=== PATIENT | female | born 1985 | race Caucasian/White ===

== ENCOUNTER 2024-12-12 13:16 | Outpatient (AMB) | payer MEDICAID, SELFPAY ==
[2024-12-12 13:36] VITALS: BP 106/70; PULSE 83; RESP 17; TEMP 36.5; O2SAT 95; BMI 32.1
--- NOTE | 2024-12-12 13:36 | OBCLNT_ITS ---
Vital Signs 12/12/24 13:36 Height 1.6 m Height Method Measured Weight 82.157 kg Weight Measurement Method Standing Scale BMI 32.1 BP 106/70 Blood Pressure Source Automatic Cuff Blood Pressure Location Right Upper Arm Position Sitting Respiration 17 Pulse 83 Pulse Source Monitor Temp 97.7 F Temp Source Temporal Artery Scan Pulse Oximetry (%) 95 Oxygen Delivery Method Room Air Allergies/Home Meds Allergies & Medications Allergies No Known Allergies Allergy (Verified 12/12/24 13:37) Medication Reconciliation metformin 500 mg tablet 500 mg PO QDAY 12/12/24 [History Confirmed 12/12/24] vits no.126-ferrous fum 28 mg iron-folic acid 800 mcg tablet (Classic ) tab PO 12/12/24 [History Confirmed 12/12/24] Intake Visit Data Collection New Patient or Established: New Patient (never been to [facility]) Reason for Visit:: OBI Consent obtained for Telemed Visit: No Seen by Clinical Staff ONLY (RN/MA): No Real Estate 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 Manager Required: No Do You Feel Safe at Home: Yes Authorities Contacted: N/A PCP or OBGYN visit in last 3 months: No Hx Now: Yes Are you currently on any form of Control: No Last menstrual period: 05/19/24 Pain Present Currently: No Pain Scale Used: Jarquin-Russell/Numerical Pain scale:: 0 Smoking Status Smoking Status: Never smoker Questionnaires Covid-19 Vaccine Questionnaire Has patient been vacinated for Covid-19 Have you been vacinated for Covid-19: Yes Social History Living Situation History Marital Status: Lives With: Family Housing: House Housing Other:: Lives w/ and children Tobacco History Smoking Status: Never smoker Second Hand Smoke Exposure: No Alcohol History Alcohol Intake: Never Domestic Abuse History Do You Feel Safe at Home: Yes History of Present Illness HPI Narrative This is a 39-year-old 5 para 3 who comes today from Dr. Barboza's care for OB transfer. Patient has been followed for AMA and GDM. Her last. June 12, 2024. And based on last. That makes the patient due March 18, 2025. Patient had a 6-week ultrasound December 07, 2024. And that changed due date to February 05, 2025. Patient denies social habits. Denies surgery. Denies chronic illness. As mentioned patient has GDM with the . She reports that her sugars are at goal and I reviewed the log and they were 90% of the time at goal and patient is taking metformin 500 mg twice a day. She is also taking low-dose baby aspirin as well. Patient also had an ultrasound August 15, 2024. Patient was 15 weeks 1 and this also confirmed dates of February 05, 2025. Patient hematocrit was 39.3 and hemoglobin 13.4. Normal platelets. A+, antibody screen negative, RPR nonreactive, rubella immune, HIV was negative. Hepatitis B negative. Hep C negative. GC and Chlamydia were negative. AFP, NIPT and carrier screens all negative. 1 hour was 142. And then the 1st and 2nd hours o f the 3-hour were abnormal. A1c 5.7. Denies contractions. Denies bleeding. 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 Patient is a transfer from Dr. Barboza with records. History of GDM with this . She is taking metformin 500 twice daily her 3-hour 1 and 2-hour values were elevated. She is tracking her sugars and being compliant with diet. Walks 20 to 40 minutes a day. Sugars are at goal 90% of the time. Reports good movement. Denies leaking, denies bleeding, denies contractions. Patient has a follow-up with MFM in 3 weeks. Reviewed records and labs with patient. I reviewed sugar logs. Continue GDM diet. Patient to continue metformin 500 twice daily. Walk 40 minutes a day. Keep M ultrasound in 2 weeks. I scheduled NST BPP for patient discussed labor precautions and kick counts twice a day. Increase fluids. And return in 2 weeks OB check Menstrual History Menstrual reliability: definite Flow: normal Menstrual regularity: regular Monthly: Yes Age at menarche: 12 On control pills at conception: No Date of positive home test: 06/04/24 OB History : 5 Para: 3 Hx Total # of Abortions (Spontaneous & Elective): 1 # of Living Children: 3 Delivery History 1st : Child's name: KENY date: 05/24/10 sex: female Gestational age at delivery (weeks): 40 Delivery type: vaginal weight (lbs): 3175.147 g weight (oz): 56.699 g History of depression before or after : No 2nd : Child's name: VICKIE date: 12/04/11 sex: female Gestational age at delivery (weeks): 40 Delivery type: vaginal weight (lbs): 3175.147 g weight (oz): 198.447 g History of depression before or after : No 3rd : Child's name: REA date: 01/25/18 sex: male Gestational age at delivery (weeks): 40 Delivery type: vaginal weight (lbs): 3628.739 g weight (oz): 170.097 g History of depression before or after : No Infection History & Risk Evaluation History of STDs: none HIV risk evaluation: low risk Hepatitis B risk evaluation: low risk Patient or partner has history of Genital Herpes: No Genetic Screening & History Genetic Screening/Teratology Counseling - Includes patient, baby's father, or anyone in either family with: 1. Patient's age 35 years or older as of estimated date of delivery: Yes 2. Thalassemia (Sierra Leonean, Upper Sorbian, Mediterranean, or Background); MCV less than 80: No 3. Neural Tube Defect (Meningomyelocele, Spina Bifida, or Anencephaly): No 4. Congenital Heart Defect: No 5. Down Syndrome: No 6. Jordan-Sachs (Ashkenazi Yazidi, Cajun, Belgian [place]an): No 7. Aydin Disease (Ashkenazi Yazidi): No 8. Familial Dysautonomia (Ashkenazi Yazidi): No 9. Sickle Cell Disease or Trait (): No 10. Hemophilia or other blood disorders: No 11. Muscular Dystrophy: No 12. Cystic Fibrosis: No 13. [place]'s Chorea: No 14. Mental Retardation/Autism: No 15. Other inherited genetic or chromosomal disorder: No 16. Maternal Metabolic Disorder (EG,TYPE 1 Diabetes, PKU): No 17. Patient or baby's father had a child with defects not listed above: No 18. Recurrent loss or a stillbirth: No 19. Medications (including supplements, vitamins, herbs or otc drugs)/illicit/recreational drugs/alcohol since last menstrual period: No 20. Any other: No Infection History 1. Live with someone with TB or exposed to TB: No 2. Rash or viral illness since last menstrual period: No 3. Hepatitis B,C: No Other (see comments) Source: [employer] Review of Systems Review of Systems Systems Reviewed: All systems reviewed, normal except as documented Exam General Limitations: no limitations General Appearance: alert, in no apparent distress, comfortable, cooperative, healthy appearing, well developed and well groomed ENT ENT exam: Present normal exam, normal oropharynx and mucous membranes moist Chest Chest inspection: Present normal inspection and symmetric chest wall rise Resp Respiratory exam: Present normal lung sounds bilaterally Card Cardiovascular exam: Present regular rate, normal rhythm and normal heart sounds Psych Psychiatric exam: Present normal affect and normal mood Office Procedures OB Clinic LOC & Office Proc's Nursing/Assessment Patient Status: Initial/New Patient OB Clinic Nursing Assessment: Medication Reconciliation, Update PMH in EMR and Vital Signs OB Clinic Coordination of Care: Complex Care and Chronic Disease 1-5, Consent,records obtained, informed consent, Education Simp Pt/Fam, 4+ Authorizations needed, Lab and Imaging orders and Results/Orders obtained Special Needs: Heart tones New Patient Charge New Patient Point Assignment: [id number] New Patient Point Charge: TEST RIDER Level 4 ([id number]) Assessment & Plan Diagnosis / Problem List (1) Advanced maternal age (AMA) in : Status: Acute (2) Diet controlled gestational diabetes mellitus (GDM) in third trimester: Status: Acute Plan Continue GDM diet. Walk 40 minutes a day. Reviewed labs and chart with patient. Patient has a follow-up growth scan at [facility] [place] in 2 weeks. Discussed labor precautions. And I put in the referral for weekly NST BPP. Discussed kick count twice a day. Increase fluids. Patient took continue logging blood sugars with good compliance. Return in 2 weeks OB check Additional Plan Follow Up: 2 Weeks (obc)
== END 2024-12-12 14:04 | disposition home or self-care (01) ==
LOC: HODSOBC 13:16
PROVIDERS: Supervising Provider Advanced Practice Midwife; Visit Provider Advanced Practice Midwife
DX: O09.523 Supervision of elderly multigravida, third trimester (principal); O09.893 Supervision of other high risk pregnancies, third trimester; O24.415 Gestational diabetes mellitus in pregnancy, controlled by oral hypoglycemic drugs; Z3A.32 32 weeks gestation of pregnancy
CPT/HCPCS: 99204; G0463

== ENCOUNTER 2024-12-26 12:58 | Outpatient (AMB) | payer MEDICAID, SELFPAY ==
[2024-12-26 13:09] VITALS: BP 114/67; PULSE 82; RESP 16; TEMP 36.9; O2SAT 96; BMI 32.3
--- NOTE | 2024-12-26 13:09 | AMB.OBVISIT ---
Vital Signs 12/26/24 13:09 Height 1.6 m Height Method Stated Weight 82.781 kg Weight Measurement Method Standing Scale BMI 32.3 BP 114/67 Blood Pressure Source Automatic Cuff Blood Pressure Location Left Upper Arm Position Sitting Respiration 16 Pulse 82 Pulse Source Monitor Temp 98.4 F Temp Source Oral Pulse Oximetry (%) 96 Oxygen Delivery Method Room Air Allergies/Home Meds Allergies & Medications Allergies No Known Allergies Allergy (Verified 12/26/24 13:11) Medication Reconciliation metformin 500 mg tablet 500 mg PO QDAY 12/12/24 [History Confirmed 12/26/24] vits no.126-ferrous fum 28 mg iron-folic acid 800 mcg tablet (Classic ) tab PO 12/12/24 [History Confirmed 12/26/24] Intake Visit Data Collection New Patient or Established: Established Patient (seen at [facility] within 3 years) Reason for Visit:: CARE Seen by Clinical Staff ONLY (RN/MA): No It Risk And Assurance Senior Manager Required: No Do You Feel Safe at Home: Yes Authorities Contacted: N/A PCP or OBGYN visit in last 3 months: Yes Hx Now: Yes Are you currently on any form of Control: No Pain Present Currently: No Pain Scale Used: Jarquin-Russell/Numerical Pain scale:: 0 Smoking Status Smoking Status: Never smoker Questionnaires Covid-19 Vaccine Questionnaire Has patient been vacinated for Covid-19 Have you been vacinated for Covid-19: Yes PHQ-9 PHQ-2 Over the last 2 weeks, how often have you been bothered by any of the following problems? 1. Little interest or pleasure in doing things: not at all 2. Feeling down, depressed, or hopeless: not at all Total score: 0 PHQ-9 3. Trouble falling or staying asleep, or sleeping too much: Not at all 4. Feeling tired or having little energy: Not at all 5. Poor appetite or overeating: Not at all 6. Feeling bad about yourself - or that you are a failure or have let yourself or your family down: Not at all 7. Trouble concentrating on things, such as reading the newspaper or watching television: Not at all 8. Moving or speaking so slowly that other people could have noticed? - Or the opposite - being so fidgety or restless that you have been moving around a lot more than usual: not at all 9. Thoughts that you would be better off or of hurting yourself in some way: Not at all Total score: 0 Source: Developed by Drs. Ger Leija, Alba Pike, Waldemar Liao and colleagues, with an educational diane from [email or web address]. 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 Patient is a transfer from Dr. Barboza with records. History of GDM with this . She is taking metformin 500 twice daily her 3-hour 1 and 2-hour values were elevated. She is tracking her sugars and being compliant with diet. Walks 20 to 40 minutes a day. Sugars are at goal 90% of the time. Reports good movement. Denies leaking, denies bleeding, denies contractions. Patient has a follow-up with MFM in 3 weeks. Reviewed records and labs with patient. I reviewed sugar logs. Continue GDM diet. Patient to continue metformin 500 twice daily. Walk 40 minutes a day. Keep MFM ultrasound in 2 weeks. I scheduled NST BPP for patient discussed labor precautions and kick counts twice a day. Increase fluids. And return in 2 weeks OB check 12/26/24 <del>?</del> 34w 1d 82.781 kg 114/67 absent cephalic 34 145 active Reports good movement. Sugars are at goal 90% of the time. Patient is compliant with GDM diet. Patient is also compliant with weekly NST BPP she has a follow-up appointment with MFM in 3 weeks Continue to follow GDM diet and monitor glucose every day. 4 times a day. Keep appointments for weekly NST BPP and with MFM. Discussed labor precautions and labor precautions with patient. Discussed kick count twice a day. And return in 2 weeks for GBS and OB check MARVIN Calculator Estimated Delivery Date Method Current WG Current Estimate 02/05/25 Ultrasound #1 34w 1d Other Estimates 03/19/25 LMP (Uncertain) 28w 1d 02/05/25 Ultrasound #2 34w 1d Notes Visit Date: 12/12/24 Last Updated by: Flakita Spain CNM [address] ob sono: 08/15/24. IUP:15 week: 02/05/25. [facility] sono: 25w1: 02/05/25, efw; 375. A+, RPR nonreactive, HIV negative, hepatitis C negative, hep B negative, rubella immune, GC and Chlamydia were negative. AFP, NIPT and carrier screens all negative. 1 hour GTT was 142. 3-hour GTT was abnormal. A1c 5.7. Office Procedures OB Clinic LOC & Office Proc's Nursing/Assessment Patient Status: Established Patient OB Clinic Nursing Assessment: Medication Reconciliation, Update PMH in EMR and Vital Signs OB Clinic Coordination of Care: Complex Care and Chronic Disease 1-5, Consent,records obtained, informed consent, Education Simp Pt/Fam, Lab and Imaging orders, Results/Orders obtained and Staff clarify orders Special Needs: Heart tones Established Patient Charge Established Patient Point Assignment: 135 Established Patient Point Charge: EP Level 4 (120-155) Assessment & Plan Diagnosis / Problem List (1) Encounter for supervision of high risk in third trimester, antepartum: Status: Acute (2) Diet controlled gestational diabetes mellitus (GDM) in third trimester: Status: Acute (3) Advanced maternal age (AMA) in : Status: Acute Plan Continue to monitor glucose 4 times a day. And locked him. Continue weekly NST BPP. And keep appointment with maternal- medicine for growth scan in 2 weeks. Patient will continue to follow GDM diet. Discussed labor precautions and kick count twice a day return in 2 weeks GBS and OB check Additional Plan Follow Up: 2 Weeks (obc/gbs)
== END 2024-12-26 13:20 | disposition home or self-care (01) ==
LOC: HODSOBC 12:58
PROVIDERS: Supervising Provider Advanced Practice Midwife; Visit Provider Advanced Practice Midwife
DX: O09.523 Supervision of elderly multigravida, third trimester (principal); O09.893 Supervision of other high risk pregnancies, third trimester; O24.415 Gestational diabetes mellitus in pregnancy, controlled by oral hypoglycemic drugs; Z3A.34 34 weeks gestation of pregnancy
CPT/HCPCS: 99214; G0463

== ENCOUNTER 2025-01-09 13:04 | Outpatient (AMB) | payer MEDICAID, SELFPAY ==
--- NOTE | 2025-01-09 13:13 | OBCLNT_ITS ---
Vital Signs 01/09/25 13:14 Height 1.6 m Height Method Stated Weight 84.368 kg Weight Measurement Method Standing Scale BMI 32.9 BP 118/76 Blood Pressure Source Automatic Cuff Blood Pressure Location Left Upper Arm Position Sitting Respiration 16 Pulse 100 Pulse Source Monitor Temp 97.2 F Temp Source Oral Pulse Oximetry (%) 98 Oxygen Delivery Method Room Air Allergies/Home Meds Allergies & Medications Allergies No Known Allergies Allergy (Verified 01/09/25 13:14) Medication Reconciliation metformin 500 mg tablet 500 mg PO QDAY 12/12/24 [History Confirmed 01/09/25] vits no.126-ferrous fum 28 mg iron-folic acid 800 mcg tablet (Classic ) tab PO 12/12/24 [History Confirmed 01/09/25] Intake Visit Data Collection New Patient or Established: Established Patient (seen at [facility] within 3 years) Reason for Visit:: OBC Seen by Clinical Staff ONLY (RN/MA): No Medical Records Clerk Required: No Do You Feel Safe at Home: Yes Authorities Contacted: N/A PCP or OBGYN visit in last 3 months: Yes Date of Last PCP or OBGYN visit: 01/23/25 Hx Now: Yes Are you currently on any form of Control: No Pain Present Currently: No Pain Scale Used: Jarquin-Russell/Numerical Pain scale:: 0 Smoking Status Smoking Status: Never smoker Questionnaires Covid-19 Vaccine Questionnaire Has patient been vacinated for Covid-19 Have you been vacinated for Covid-19: Yes PHQ-9 PHQ-2 Over the last 2 weeks, how often have you been bothered by any of the following problems? 1. Little interest or pleasure in doing things: not at all 2. Feeling down, depressed, or hopeless: not at all Total score: 0 PHQ-9 3. Trouble falling or staying asleep, or sleeping too much: Not at all 4. Feeling tired or having little energy: Not at all 5. Poor appetite or overeating: Not at all 6. Feeling bad about yourself - or that you are a failure or have let yourself or your family down: Not at all 7. Trouble concentrating on things, such as reading the newspaper or watching television: Not at all 8. Moving or speaking so slowly that other people could have noticed? - Or the opposite - being so fidgety or restless that you have been moving around a lot more than usual: not at all 9. Thoughts that you would be better off or of hurting yourself in some way: Not at all Total score: 0 If you checked off any problems, how difficult have these problems made it for you to do your work, take care of things at home, or get along with other people?: not difficult at all Source: Developed by Drs. Ger Leija, Alba Pike, Waldemar Liao and colleagues, with an educational diane from [employer]. 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 Patient is a transfer from Dr. Barboza with records. History of GDM with this . She is taking metformin 500 twice daily her 3-hour 1 and 2-hour values were elevated. She is tracking her sugars and being compliant with diet. Walks 20 to 40 minutes a day. Sugars are at goal 90% of the time. Reports good movement. Denies leaking, denies bleeding, denies contra ctions. Patient has a follow-up with [facility] in 3 weeks. Reviewed records and labs with patient. I reviewed sugar logs. Continue GDM diet. Patient to continue metformin 500 twice daily. Walk 40 minutes a day. Keep [facility] ultrasound in 2 weeks. I scheduled NST BPP for patient discussed labor precautions and kick counts twice a day. Increase fluids. And return in 2 weeks OB check 12/26/24 -?-?-?-?-?-?-?-?-?-?-?-?- 34w 1d 82.781 kg 114/67 absent cephalic 34 145 active Reports good movement. Sugars are at goal 90% of the time. Patient is compliant with GDM diet. Patient is also compliant with weekly NST BPP she has a follow-up appointment with MFM in 3 weeks Continue to follow GDM diet and monitor glucose every day. 4 times a day. Keep appointments for weekly NST BPP and with MFM. Discussed labor precautions and labor precautions with patient. Discussed kick count twice a day. And return in 2 weeks for GBS and OB check 01/09/25 -?-?-?-?-?-?-?-?-?-?-?-?- 36w 1d 84.368 kg 118/76 occasional cephalic 36 135 active Reports good movement. Denies leaking, denies bleeding, occasional contraction. Increased pressure. Sugars are at goal 95% of the time. Continue weekly NST BPP. Kick count twice a day reviewed with patient. Continue GDM diet and to log sugars. Walk 40 minutes a day. GBS today. Schedule induction for 01/30/25 MARVIN Calculator Estimated Delivery Date Method Current WG Current Estimate 02/05/25 Ultrasound #1 36w 1d Other Estimates 03/19/25 LMP (Uncertain) 30w 1d 02/05/25 Ultrasound #2 36w 1d 02/05/25 Manual 36w 1d final MARVIN Notes Visit Date: 01/09/25 Last Updated by: Flakita Spain CNM IOL: 01/30/25 Visit Date: 12/12/24 Last Updated by: Flakita Spain CNM [address] ob sono: 08/15/24. IUP:15 week: 02/05/25. [facility] sono: 25w1: 02/05/25, efw; 375. A+, RPR nonreactive, HIV negative, hepatitis C negative, hep B negative, rubella immune, GC and Chlamydia were negative. AFP, NIPT and carrier screens all negative. 1 hour GTT was 142. 3-hour GTT was abnormal. A1c 5.7. Office Procedures OB Clinic LOC & Office Proc's Nursing/Assessment Patient Status: Established Patient OB Clinic Nursing Assessment: Medication Reconciliation, Update PMH in EMR and Vital Signs OB Clinic Coordination of Care: Education Complex Pt/Fam, Consent,records obtained, informed consent, Lab and Imaging orders and Staff clarify orders Special Needs: Heart tones Established Patient Charge Established Patient Point Assignment: 110 Established Patient Point Charge: EP Level 3 (80-115) Assessment & Plan Diagnosis / Problem List (1) Diet controlled gestational diabetes mellitus (GDM) in third trimester: Status: Acute (2) Advanced maternal age (AMA) in : Status: Acute Plan GBS today. Discussed labor precautions and kick count twice a day. Discussed ER precautions. Continue GDM diet. Continue to monitor blood sugars. And weekly NST BPP. Induce January 30, 2025. Return in a week OB check Additional Plan Follow Up: 1 Week (obc)
[2025-01-09 13:14] VITALS: BP 118/76; PULSE 100; RESP 16; TEMP 36.2; O2SAT 98; BMI 32.9
== END 2025-01-09 13:26 | disposition home or self-care (01) ==
LOC: HODSOBC 13:04
PROVIDERS: Supervising Provider Advanced Practice Midwife; Visit Provider Advanced Practice Midwife
DX: O09.523 Supervision of elderly multigravida, third trimester (principal); O09.893 Supervision of other high risk pregnancies, third trimester; O24.415 Gestational diabetes mellitus in pregnancy, controlled by oral hypoglycemic drugs; Z36.85 Encounter for antenatal screening for Streptococcus B; Z3A.36 36 weeks gestation of pregnancy
CPT/HCPCS: 99213; G0463

== ENCOUNTER 2025-01-19 08:30 | Outpatient (AMB) | payer MEDICAID, SELFPAY ==
[2025-01-19 08:40] VITALS: BP 120/78; PULSE 87; RESP 16; TEMP 36.5; O2SAT 97; BMI 32.8
--- NOTE | 2025-01-19 08:40 | AMB.OBVISIT ---
Vital Signs 01/19/25 08:40 Height 1.6 m Height Method Stated Weight 84.141 kg Weight Measurement Method Standing Scale BMI 32.8 BP 120/78 Blood Pressure Source Automatic Cuff Blood Pressure Location Left Upper Arm Position Sitting Respiration 16 Pulse 87 Pulse Source Monitor Temp 97.7 F Temp Source Oral Pulse Oximetry (%) 97 Oxygen Delivery Method Room Air Allergies/Home Meds Allergies & Medications Allergies No Known Allergies Allergy (Verified 01/19/25 08:41) Medication Reconciliation metformin 500 mg tablet 500 mg PO QDAY 12/12/24 [History Confirmed 01/19/25] vits no.126-ferrous fum 28 mg iron-folic acid 800 mcg tablet (Classic ) tab PO 12/12/24 [History Confirmed 01/19/25] Intake Visit Data Collection New Patient or Established: Established Patient (seen at [facility] within 3 years) Reason for Visit:: CARE Seen by Clinical Staff ONLY (RN/MA): No Registered Nurse Cardiovascular Icu Required: No Do You Feel Safe at Home: Yes Authorities Contacted: N/A PCP or OBGYN visit in last 3 months: Yes Hx Now: Yes Are you currently on any form of Control: No Pain Present Currently: No Pain Scale Used: Jarquin-Russell/Numerical Pain scale:: 0 Smoking Status Smoking Status: Never smoker Questionnaires Covid-19 Vaccine Questionnaire Has patient been vacinated for Covid-19 Have you been vacinated for Covid-19: Yes PHQ-9 PHQ-2 Over the last 2 weeks, how often have you been bothered by any of the following problems? 1. Little interest or pleasure in doing things: not at all 2. Feeling down, depressed, or hopeless: not at all Total score: 0 PHQ-9 3. Trouble falling or staying asleep, or sleeping too much: Not at all 4. Feeling tired or having little energy: Not at all 5. Poor appetite or overeating: Not at all 6. Feeling bad about yourself - or that you are a failure or have let yourself or your family down: Not at all 7. Trouble concentrating on things, such as reading the newspaper or watching television: Not at all 8. Moving or speaking so slowly that other people could have noticed? - Or the opposite - being so fidgety or restless that you have been moving around a lot more than usual: not at all 9. Thoughts that you would be better off or of hurting yourself in some way: Not at all Total score: 0 Source: Developed by Drs. Ger Leija, Alba Pike, Waldemar Liao and colleagues, with an educational diane from [employer]. 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 Patient is a transfer from Dr. Barboza with records. History of GDM with this . She is taking metformin 500 twice daily her 3-hour 1 and 2-hour values were elevated. She is tracking her sugars and being compliant with diet. Walks 20 to 40 minutes a day. Sugars are at goal 90% of the time. Reports good movement. Denies leaking, denies bleeding, denies contractions. Patient has a follow-up with MFM in 3 weeks. Reviewed records and labs with patient. I reviewed sugar logs. Continue GDM diet. Patient to continue metformin 500 twice daily. Walk 40 minutes a day. Keep MFM ultrasound in 2 weeks. I scheduled NST BPP for patient discussed labor precautions and kick counts twice a day. Increase fluids. And return in 2 weeks OB check 12/26/24 <del>?</del> 34w 1d 82.781 kg 114/67 absent cephalic 34 145 active Reports good movement. Sugars are at goal 90% of the time. Patient is compliant with GDM diet. Patient is also compliant with weekly NST BPP she has a follow-up appointment with MFM in 3 weeks Continue to follow GDM diet and monitor glucose every day. 4 times a day. Keep appointments for weekly NST BPP and with MFM. Discussed labor precautions and labor precautions with patient. Discussed kick count twice a day. And return in 2 weeks for GBS and OB check 01/09/25 <del>?</del> 36w 1d 84.368 kg 118/76 occasional cephalic 36 135 active Reports good movement. Denies leaking, denies bleeding, occasional contraction. Increased pressure. Sugars are at goal 95% of the time. Continue weekly NST BPP. Kick count twice a day reviewed with patient. Continue GDM diet and to log sugars. Walk 40 minutes a day. GBS today. Schedule induction for 01/30/25 01/19/25 <del>?</del> 37w 4d 84.141 kg 120/78 occasional cephalic 37 135 active Fetus is active per patient. Denies leaking, denies bleeding, denies contractions. Sugars at goal 90% of the time. Patient is aware of GDM diet. Compliant with monitoring sugars. Patient has weekly NST BPP and is compliant with Continue weekly nonstress test and BPP. Continue GDM diet and monitoring glucoses 4 times a day. Kick count twice a day. Reviewed labor precautions with patient and patient will be induced January 30 MARVIN Calculator Estimated Delivery Date Method Current WG Current Estimate 02/05/25 Ultrasound #1 37w 4d Other Estimates 03/19/25 LMP (Uncertain) 31w 4d 02/05/25 Ultrasound #2 37w 4d 02/05/25 Manual 37w 4d final MARVIN: 02/05/25 Notes Visit Date: 01/19/25 Last Updated by: Flakita Spain CNM GBS- GDM/diet Visit Date: 01/09/25 Last Updated by: Flakita Spain CNM IOL: 01/30/25 Visit Date: 12/12/24 Last Updated by: Flakita Spain CNM [address] ob sono: 08/15/24. IUP:15 week: 02/05/25. [facility] sono: 25w1: 02/05/25, efw; 375. A+, RPR nonreactive, HIV negative, hepatitis C negative, hep B negative, rubella immune, GC and Chlamydia were negative. AFP, NIPT and carrier screens all negative. 1 hour GTT was 142. 3-hour GTT was abnormal. A1c 5.7. Office Procedures OB Clinic LOC & Office Proc's Nursing/Assessment Patient Status: Established Patient OB Clinic Nursing Assessment: Medication Reconciliation, Update PMH in EMR and Vital Signs OB Clinic Coordination of Care: Complex Care and Chronic Disease 1-5, Consent,records obtained, informed consent, Education Simp Pt/Fam, 1 Ins Authorization, Lab and Imaging orders, Results/Orders obtained and Staff clarify orders Special Needs: Heart tones Established Patient Charge Established Patient Point Assignment: 150 Established Patient Point Charge: EP Level 4 (120-155) Assessment & Plan Diagnosis / Problem List (1) Encounter for supervision of high risk in third trimester, antepartum: Status: Acute (2) Diet controlled gestational diabetes mellitus (GDM) in third trimester: Status: Acute Plan Discussed kick count twice a day. Continue to monitor sugars 4 times a day. And log them. Continue with weekly NST BPP. Discussed labor precautions. Increase fluids. Induction of labor scheduled for January 30 Additional Plan Follow Up: 1 Week (OBC)
== END 2025-01-19 09:55 | disposition home or self-care (01) ==
LOC: HODSOBC 08:30
PROVIDERS: Supervising Provider Advanced Practice Midwife; Visit Provider Advanced Practice Midwife
DX: O09.523 Supervision of elderly multigravida, third trimester (principal); O09.893 Supervision of other high risk pregnancies, third trimester; O24.410 Gestational diabetes mellitus in pregnancy, diet controlled; Z3A.37 37 weeks gestation of pregnancy
CPT/HCPCS: 99214; G0463

== ENCOUNTER 2025-01-24 08:37 | Outpatient (RCR) | payer MEDICAID, SELFPAY ==
--- NOTE | 2024-12-20 08:49 | XR_ITS ---
Examination: Biophysical profile, ultrasound Date and time of exam: December 20, 2024 0859 hours INDICATIONS: Diagnosis advanced maternal age, diagnosis gestational diabetes Technique: Multiple transabdominal sonographic images of the pelvis abdomen obtained. Attention is directed to the breathing movement, gross body movement, amniotic fluid volume and tone. Findings: Amniotic fluid index 10.4 cm Total biophysical profile is 8 of 8. breathing movement is 2. Gross body movement is 2. tone is 2. Qualitative amniotic fluid volume is 2 Impression: Biophysical profile is 8 of 8.
[2024-12-20 09:46] VITALS: BP 109/66; PULSE 86; RESP 16; TEMP 36.7
--- NOTE | 2024-12-27 08:33 | XR_ITS ---
Examination: Biophysical profile, ultrasound Date and time of exam: December 27, 2024, 0845 hours INDICATIONS: Diagnosis advanced maternal age, diagnosis gestational diabetes Technique: Multiple transabdominal sonographic images of the pelvis abdomen obtained. Attention is directed to the breathing movement, gross body movement, amniotic fluid volume and tone. Findings: Amniotic fluid index 9.1 cm Total biophysical profile is 8 of 8. breathing movement is 2. Gross body movement is 2. tone is 2. Qualitative amniotic fluid volume is 2 Impression: Biophysical profile is 8 of 8.
[2024-12-27 09:37] VITALS: BP 109/68; PULSE 90; RESP 16; TEMP 36.9
--- NOTE | 2025-01-03 08:37 | XR_ITS ---
Examination: Biophysical profile, ultrasound Date and time of exam: January 03, 2025 0856 hours INDICATIONS: Diagnosis advanced maternal age, diagnosis gestational diabetes Technique: Multiple transabdominal sonographic images of the pelvis abdomen obtained. Attention is directed to the breathing movement, gross body movement, amniotic fluid volume and tone. Findings: Amniotic fluid index 15.0 cm Total biophysical profile is 8 of 8. breathing movement is 2. Gross body movement is 2. tone is 2. Qualitative amniotic fluid volume is 2 Impression: Biophysical profile is 8 of 8.
[2025-01-03 09:25] VITALS: BP 99/56; PULSE 82; RESP 16; TEMP 36.9
--- NOTE | 2025-01-10 09:02 | XR_ITS ---
Examination: Biophysical profile, ultrasound Date and time of exam: January 10, 2025 0913 hours INDICATIONS: Diagnosis advanced maternal age, diagnosis gestational diabetes. Technique: Multiple transabdominal sonographic images of the pelvis abdomen obtained. Attention is directed to the breathing movement, gross body movement, amniotic fluid volume and tone. Findings: Amniotic fluid index 9.3 cm Total biophysical profile is 8 of 8. breathing movement is 2. Gross body movement is 2. tone is 2. Qualitative amniotic fluid volume is 2 Impression: Biophysical profile is 8 of 8.
[2025-01-10 09:34] VITALS: BP 116/55; PULSE 88; RESP 16; TEMP 36.8
--- NOTE | 2025-01-17 08:44 | XR_ITS ---
Examination: Biophysical profile, ultrasound Date and time of exam: January 17, 2025 0844 hours INDICATIONS: Diagnosis advanced maternal age, diagnosis gestational diabetes Technique: Multiple transabdominal sonographic images of the pelvis abdomen obtained. Attention is directed to the breathing movement, gross body movement, amniotic fluid volume and tone. Findings: Amniotic fluid index 10.7 cm Total biophysical profile is 8 of 8. breathing movement is 2. Gross body movement is 2. tone is 2. Qualitative amniotic fluid volume is 2 Impression: Biophysical profile is 8 of 8.
[2025-01-17 09:24] VITALS: BP 106/64; PULSE 72; RESP 16; TEMP 36.9
--- NOTE | 2025-01-24 08:46 | XR_ITS ---
Examination: Biophysical profile, ultrasound Date and time of exam: January 24, 2025 0849 hours INDICATIONS: Diagnosis advanced maternal age, diagnosis gestational diabetes Technique: Multiple transabdominal sonographic images of the pelvis abdomen obtained. Attention is directed to the breathing movement, gross body movement, amniotic fluid volume and tone. Findings: Amniotic fluid index 7.3 cm Total biophysical profile is 8 of 8. breathing movement is 2. Gross body movement is 2. tone is 2. Qualitative amniotic fluid volume is 2 Impression: Biophysical profile is 8 of 8.
[2025-01-24 09:37] VITALS: BP 115/65; PULSE 70; RESP 16; TEMP 36.8
== END 2025-01-24 23:59 | disposition home or self-care (01) ==
LOC: S4S1 08:37
PROVIDERS: Referring Provider Advanced Practice Midwife; Visit Provider Advanced Practice Midwife
DX: O24.410 Gestational diabetes mellitus in pregnancy, diet controlled (principal); O09.93 Supervision of high risk pregnancy, unspecified, third trimester; O09.523 Supervision of elderly multigravida, third trimester; Z3A.38 38 weeks gestation of pregnancy
CPT/HCPCS: 59025; 76819

== ENCOUNTER 2025-01-26 09:14 | Outpatient (AMB) | payer MEDICAID, SELFPAY ==
[2025-01-26 09:20] VITALS: BP 126/80; PULSE 93; RESP 16; TEMP 36.2; O2SAT 97; BMI 33.8
--- NOTE | 2025-01-26 09:20 | OBCLNT_ITS ---
Vital Signs 01/26/25 09:20 Height 1.6 m Height Method Stated Weight 86.636 kg Weight Measurement Method Standing Scale BMI 33.8 BP 126/80 Blood Pressure Source Automatic Cuff Blood Pressure Location Left Upper Arm Position Sitting Respiration 16 Pulse 93 Pulse Source Monitor Temp 97.2 F Temp Source Oral Pulse Oximetry (%) 97 Oxygen Delivery Method Room Air Allergies/Home Meds Allergies & Medications Allergies No Known Allergies Allergy (Verified 01/26/25 09:21) Medication Reconciliation metformin 500 mg tablet 500 mg PO QDAY 12/12/24 [History Confirmed 01/26/25] vits no.126-ferrous fum 28 mg iron-folic acid 800 mcg tablet (Classic ) tab PO 12/12/24 [History Confirmed 01/26/25] Intake Visit Data Collection New Patient or Established: Established Patient (seen at [facility] within 3 years) Reason for Visit:: OB Seen by Clinical Staff ONLY (RN/MA): No 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 1. Little interest or pleasure in doing things: not at all 2. Feeling down, depressed, or hopeless: not at all Total score: 0 PHQ-9 3. Trouble falling or staying asleep, or sleeping too much: Not at all 4. Feeling tired or having little energy: Not at all 5. Poor appetite or overeating: Not at all 6. Feeling bad about yourself - or that you are a failure or have let yourself or your family down: Not at all 7. Trouble concentrating on things, such as reading the newspaper or watching television: Not at all 8. Moving or speaking so slowly that other people could have noticed? - Or the opposite - being so fidgety or restless that you have been moving around a lot more than usual: not at all 9. Thoughts that you would be better off or of hurting yourself in some way: Not at all Total score: 0 If you checked off any problems, how difficult have these problems made it for you to do your work, take care of things at home, or get along with other people?: not difficult at all Source: Developed by Drs. Ger Leija, Alba Pike, Waldemar Liao and colleagues, with an educational diane from [employer]. 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 Patient is a transfer from Dr. Barboza with records. History of GDM with this . She is taking metformin 500 twice daily her 3-hour 1 and 2-hour values were elevated. She is tracking her sugars and being compliant with diet. Walks 20 to 40 minutes a day. Sugars are at goal 90% of the time. Reports good movement. Denies leaking, denies bleeding, denies contract ions. Patient has a follow-up with [facility] in 3 weeks. Reviewed records and labs with patient. I reviewed sugar logs. Continue GDM diet. Patient to continue metformin 500 twice daily. Walk 40 minutes a day. Keep [facility] ultrasound in 2 weeks. I scheduled NST BPP for patient discussed labor precautions and kick counts twice a day. Increase fluids. And return in 2 weeks OB check 12/26/24 -?-?-?-?-?-?-?-?-?-?-?-?- 34w 1d 82.781 kg 114/67 absent cephalic 34 145 active Reports good movement. Sugars are at goal 90% of the time. Patient is compliant with GDM diet. Patient is also compliant with weekly NST BPP she has a follow-up appointment with MFM in 3 weeks Continue to follow GDM diet and monitor glucose every day. 4 times a day. Keep appointments for weekly NST BPP and with MFM. Discussed labor precautions and labor precautions with patient. Discussed kick count twice a day. And return in 2 weeks for GBS and OB check 01/09/25 -?-?-?-?-?-?-?-?-?-?-?-?- 36w 1d 84.368 kg 118/76 occasional cephalic 36 135 active Reports good movement. Denies leaking, denies bleeding, occasional contraction. Increased pressure. Sugars are at goal 95% of the time. Continue weekly NST BPP. Kick count twice a day reviewed with patient. Continue GDM diet and to log sugars. Walk 40 minutes a day. GBS today. Schedule induction for 01/30/25 01/19/25 -?-?-?-?-?-?-?-?-?-?-?-?- 37w 4d 84.141 kg 120/78 occasional cephalic 37 135 active Fetus is active per patient. Denies leaking, denies bleeding, denies contractions. Sugars at goal 90% of the time. Patient is aware of GDM diet. Compliant with monitoring sugars. Patient has weekly NST BPP and is compliant with Continue weekly nonstress test and BPP. Continue GDM diet and monitoring glucoses 4 times a day. Kick count twice a day. Reviewed labor precautions with patient and patient will be induced January 30 01/26/25 -?-?-?-?-?-?-?-?-?-?-?-?- 38w 4d 86.636 kg 126/80 occasional cephalic 38 135 active Patient relayed during visit that over 10 years ago patient had had an episode of paralysis on her right side that resolved. She did not have any follow-up with neurology. She never relayed any information to any of her primary primary care doctors. She did not relay any information to Dr. Barboza or [facility] but she is telling me today. Patient was told to avoid a spinal anesthesia. However she had a epidural with her last and she said it helped her a lot and that she did not have any residual effects so she would like epidural again. Denies any contractions. Denies leaking or bleeding. Reports good movement. Patient reports compliance with GDM diet and logging her sugars. She also reports that she is compliant with weekly NST BPP and she is scheduled for induction on January 30 Continue weekly NST BPP. Patient scheduled for induction January 30. I discussed induction with patient. Discussed epidural anesthesia with patient continue kick count twice a day. Discussed sugar logs. Patient is at goal 95% of the time. She is to continue with GDM diet and monitoring sugars. Return in a week for OB check if patient's not in for induction MARVIN Calculator Estimated Delivery Date Method Current WG Current Estimate 02/05/25 Ultrasound #1 38w 4d Other Estimates 03/19/25 LMP (Uncertain) 32w 4d 02/05/25 Ultrasound #2 38w 4d 02/05/25 Manual 38w 4d final MARVIN: 02/05 Notes Visit Date: 01/19/25 Last Updated by: Flakita Spain CNM GBS- GDM/diet Visit Date: 01/09/25 Last Updated by: Flakita Spain CNM IOL: 01/30/25 Visit Date: 12/12/24 Last Updated by: Flakita Spain CNM [address] ob sono: 08/15/24. IUP:15 week: 02/05/25. [facility] sono: 25w1: 02/05/25, efw; 375. A+, RPR nonreactive, HIV negative, hepatitis C negative, hep B negative, rubella immune, GC and Chlamydia were negative. AFP, NIPT and carrier screens all negative. 1 hour GTT was 142. 3-hour GTT was abnormal. A1c 5.7. Office Procedures OBC Clinic LOC & Office Proc's Nursing/Assessment Patient Status: Established Patient OB Clinic Nursing Assessment: Medication Reconciliation, Update PMH in EMR and Vital Signs OB Clinic Coordination of Care: Education Complex Pt/Fam, Consent,records obtained, informed consent, Lab and Imaging orders, Results/Orders obtained and Staff clarify orders Special Needs: Heart tones Established Patient Charge Established Patient Point Assignment: 115 Established Patient Point Charge: EP Level 3 (80-115) Assessment & Plan Diagnosis / Problem List (1) Encounter for supervision of high risk in third trimester, antepartum: Status: Acute (2) Diet controlled gestational diabetes mellitus (GDM) in third trimester: Status: Acute (3) Advanced maternal age (AMA) in : Status: Acute Plan Induction scheduled for June 01. Discussed labor precautions. Kick count twice a day. Continue NST BPP. Continue GDM diet and monitoring blood sugars. Walk 40 minutes a day. Discussed danger signs symptoms ER precautions return in a week OB check if not in for induction Additional Plan Follow Up: 1 Week (obc)
== END 2025-01-26 09:42 | disposition home or self-care (01) ==
LOC: HODSOBC 09:14
PROVIDERS: Supervising Provider Advanced Practice Midwife; Visit Provider Advanced Practice Midwife
DX: O09.523 Supervision of elderly multigravida, third trimester (principal); O09.893 Supervision of other high risk pregnancies, third trimester; O24.415 Gestational diabetes mellitus in pregnancy, controlled by oral hypoglycemic drugs; Z3A.38 38 weeks gestation of pregnancy
CPT/HCPCS: 99213; G0463

== ENCOUNTER 2025-01-30 09:42 | Inpatient (IN) | payer MEDICAID, SELFPAY ==
[2025-01-30] VITALS (22 sets, daily range): BP systolic 105–118; BP diastolic 66–77; PULSE 65–92; RESP 18–20; TEMP 2.7–37; O2SAT 93–98; BMI 34.7
--- NOTE | 2025-01-30 08:49 | PC.NURSE ---
CALLED PT, ASKED PT TO COME IN FOR IOL AT 0930, PT VERBALIZED UNDERSTANDING PT HAD CALLED AT 0730, INFORMED OF NO BEDS AVAILABLE, EDUCATED ON CALLING ONCE BED BECOMES AVAILABLE, EDUCATED ON KICK COUNT AND LABOR PRECAUTIONS, PT VERBALIZED UNDERSTANDING
--- NOTE | 2025-01-30 10:50 | XR_ITS ---
Examination: Complete OB ultrasound greater than 14 weeks Date and time of exam: January 30, 2025, 1124 hours INDICATIONS: Labor induction today, unknown presentation unknown weight Findings: Viable intrauterine single fetus with single amniotic sac presentation cephalic spine maternal right Cardiac motion 129 BPM Placenta fundal grade 2 Umbilical cord insertion 3 vessel seen. Amniotic fluid index 8.0 cm. Composite estimated gestational age based on BPD, head circumference, abdominal circumference, femur length is 39 weeks 2 days, estimated weight 3747 g Ovaries obscured by bowel gas. Survey of intracranial anatomy, spinal anatomy, abdominal anatomy, four-chamber heart performed with no abnormalities identified. Impression: Viable intrauterine gestation cephalic presentation.
[2025-01-30 11:24] LABS: Basophils # (Auto) 0.1 Thou/mm3 (0.0-0.2); Basophils % (Auto) 1 % (0-2.5); Eosinophils # (Auto) 0.1 Thou/mm3 (0.0-0.5); Eosinophils % (Auto) 1 % (0-10); Hematocrit 32.3 % (36.0-46.0); Hemoglobin 10.8 g/dL (12.0-16.0); Immature Granulocytes Auto 0.08 Thou/mm3 (0.00-0.00); Lymphocytes # (Auto) 1.0 Thou/mm3 (1.0-4.8); Lymphocytes % (Auto) 11 % (10-50); Mean Corpuscular HGB Conc 33.4 g/dl (31.0-37.0); Mean Corpuscular Hemoglobin 28.0 pg (25.0-35.0); Mean Corpuscular Volume 84 fL (80-100); Monocytes # (Auto) 0.6 Thou/mm3 (0.0-0.8); Monocytes % (Auto) 8 % (0-12); Neutrophils # (Auto) 6.5 Thou/mm3 (1.8-7.7); Neutrophils % (Auto) 78 % (37-80); Nucleated Red Blood Cell # 0.00 Thou/mm3 (0.00-0.00); Nucleated Red Blood Cell % 0 /100 WBC (0); Platelet Count 166 Thou/mm3 (140-440); RDW Standard Deviation 40.8 fL (36.4-46.3); Red Blood Count 3.86 Miln/mm3 (4.00-5.20); White Blood Count 8.3 Thou/mm3 (3.6-11.0)
[2025-01-30 12:11] LABS: Syphilis Nonreactive (Nonreactive)
--- NOTE | 2025-01-30 13:15 | PD.LDHP ---
Documentation for date of: 01/30/25 OB Labor/Induct. HPI History of Present Illness Chief complaint: IOL : 5 Term pregnancies: 2 pregnancies: 0 Living children: 3 History of Abortions: Spontaneous and Elective: 1 History of Vaginal deliveries: 3 History of sections: No History of : No Date of last menstrual period: 05/01/24 MARVIN: 02/05/25 Gestational Age (weeks): 39 Gestational Age (days): 1 Gestational age based on last menstrual period: 39 Indication for induction: medical complication (GDM, diet) History of present illness: 39-year-old 5 para 2 for induction of labor. Patient has been followed at both Dr. Barboza's office and then transferred care to [facility] medical OB clinic. Last. May 01, 2025. This gives a due date of February 05, 2025. Patient is 39 weeks and a day. She has been followed for GDM on metformin. Sugars have been at goal 90% of the time. Patient is compliant with taking metformin. Patient has also been followed with weekly NST BPP. She has had several maternal- medicine ultrasounds that all concur with dates and growth. And the baby has been growing in the 60th percentile. Denies social habits. And denies surgeries. Patient did report that 10 years ago she had an episode of paralysis in her face like a drooping on the right side. There was no follow-up. Patient had 2 pregnancies since. She had an epidural with the last . Reports movement. Occasional contractions. Denies leaking or bleeding. History of Present Dating criteria: LMP confirmed by 1st trimester US Ultrasounds: normal 1st trimester US and normal mid trimester US Obstetrical complications: gestational diabetes Medical complications: none Labs Labs: Negative: RPR, Hepatitis B, Rubella Titre, HIV, Chlamydia, Gonorrhea and Group Beta Strep Review of Systems Review of Systems Systems Reviewed: All systems reviewed, normal except as documented Past Medical History Surgical History SURGICAL: Negative Section Meds Home Medications and Allergies Home Medications ?Medication ?Instructions ?Recorded ?Confirmed ?Type metformin 500 mg tablet 500 mg PO QDAY 12/12/24 01/30/25 History vits no.126-ferrous fum 1 tab PO 12/12/24 01/26/25 History 28 mg iron-folic acid 800 mcg tablet (Classic ) Allergies Allergy/AdvReac Type Severity Reaction Status Date / Time No Known Allergies Allergy Verified 01/30/25 10:03 OB Exam Physical Exam Vital signs: Temp Pulse Resp BP Pulse Ox 36.9 F L 87 18 115/73 98 01/30/25 10:20 01/30/25 10:20 01/30/25 10:20 01/30/25 10:20 01/30/25 10:36 Narrative: Normal heart rate and rhythm. Lungs clear no wheezes. Gravid abdomen. Gynecoid pelvis. Estimated weight 7-1/2 pounds. Vaginal examination was long, 1, posterior. -3. Soft. heart rate category 1 with accelerations and moderate variability her blood sugar was normal today. Occasional contraction. There is no limitations or deficiencies in muscle strength. Routine Cardiovascular Exam Cardiovascular: Present RRR Routine Abdominal Exam Abdominal: Present soft Detailed Labor and Delivery Exam Dilation (cm): 1 Effacement (%): thick Cervix position: posterior station: -3 Consistency: soft Presentation: Vertex Cervical ripeness score: 3 Membranes: intact Baseline heart rate: 145 monitor accelerations: 15x15 monitor decelerations: None intermediate manager variability: Moderate (11-25) Contraction frequency (min): occ Contraction duration (sec): 30 Tachysystole: No Contraction intensity: Mild OB Results Labs 01/30/25 10:30 Labs: Short CBC 01/30/25 Range/Units 10:30 WBC 8.3 (3.6-11.0) Thou/mm3 Hgb 10.8 L (12.0-16.0) g/dL Hct 32.3 L (36.0-46.0) % Plt Count 166 (140-440) Thou/mm3 OB Assessment & Plan Additional Plan Induction method: per misoprostol protocol Plan: induction, anticipate NVD and consult MD taveras
[2025-01-31] VITALS (257 sets, daily range): BP systolic 79–171; BP diastolic 42–92; PULSE 57–162; RESP 16–18; TEMP 36.4–37.3; O2SAT 85–100
[2025-01-31] MEDS: RINGERS LACTATED 1000 ML 1,000 ML 100 ML IV ×5 (02:20→20:26)
--- NOTE | 2025-01-31 08:21 | PD.LDPN ---
Documentation for date of: 01/31/25 OB Labor Progress Note Pain Control Pain control: tolerating well Pelvic Exam Dilation (cm): 4 Effacement (%): 60 station: -3 Amniotic membrane status: Intact Contractions Monitor mode: External Contraction frequency: 4-5 Contraction pattern: Coupling Contraction phase: Resting Contraction intensity: Mild Status status: Category l Assessment and Plan Plan OB labor note: continuous present management CNM Management MD Consulted (describe details below): Yes
[2025-01-31] MEDS: OXYTOCIN in NS 30 units 30 UNIT/500 ML BAG IV (13:30)
[2025-01-31] MEDS: OXYTOCIN in NS 30 units 30 UNIT/500 ML BAG 10 UNIT IV (20:25)
[2025-01-31] MEDS: OXYTOCIN INJ 10 UNIT/ML VIAL IM (23:32)
[2025-01-31] MEDS: METHYLERGONOVINE INJ 0.2 MG/ML VIAL IM (23:36)
[2025-01-31] MEDS: MINERAL OIL 30 ML UDC TOP (23:51)
[2025-01-31] MEDS: OXYTOCIN in NS 20 units 20 UNIT/1,000 ML BAG 125 UNIT IV (23:55)
[2025-01-31] MEDS: BENZO/LANO/ALOE (Dermoplast) 60 GM CAN 1 SPRAY TOP (23:59)
[2025-02-01] VITALS (15 sets, daily range): BP systolic 100–168; BP diastolic 63–102; PULSE 57–90; RESP 16–20; TEMP 36.3–37.2; O2SAT 96–99
--- NOTE | 2025-02-01 | PD.LDDELS ---
Data (Pierre) Data Hx Section: No : 5 Term: 2 : 0 Livin Abortions: Spontaneous & Theraputic: 1 Delivery Data (Pierre) Labor Data Initiation of labor: Induction Induction/Augmentation Agent: Cytotec-Vaginal, Cervidil and Pitocin ROM date: 01/31/25 Amniotic membrane rupture type: Artificial Delivery Data EDC: 02/05/25 EDC calculated by:: LMP/early US confirmation Date of arrival to unit: 01/30/25 Time of arrival to unit: 09:42 Onset of labor date: 01/31/25 Onset of labor time: 12:00 Complete dilation date: 01/31/25 Complete dilation time: 23:07 [place] delivery date: 01/31/25 delivery time: 23:29 Gestational age (weeks): 39 Gestational age (days): 2 Placenta delivery date: 01/31/25 Placenta delivery time: 23:35 Stage 1 total time: Labor - Stage 1 Duration 11 hours and 7 minutes Delivered by: Flakita Spain Delivery nurse: katie Singh nurse: Yung, RN Microsoft Application Developer at delivery: No Support person(s) at delivery: FOB at bedside Delivery Method Delivery method: Normal Vaginal Delivery Presentation: Vertex position: OA Anesthesia Type Anesthesia Type: Epidural Delivery Room Medications Delivery room medications: Methergine 0.2 mg IM, Pitocin 10 u IM, Pitocin 20 u IV, Cytotec 800 MA and other (TXA x2) Placenta Placenta delivery description: Spontaneous (inspected, membranes and placenta intact) Cord blood sent to lab: Yes cord blood collection: Cord Blood Type Episiotomy Episiotomy description: None Lacerations #1: Perineal: 1st degree (small) Perineal repair Sutures used for repair: 3.0 Vicryl EBL Estimated blood loss (ml): 400 Umbilical Cord cord description: 3 Vessels, Nuchal Cord and Around Body Data (Pierre) [place] Data order: 1 's gender: Female Identification band number: [id number] 1 minute: 9 5 minutes: 9
[2025-02-01] MEDS: TRANEXAMIC ACID 1,000 MG IVPB 1,000 MG/100 ML BAG 200 MG IV ×2 (00:04→00:38)
[2025-02-01] MEDS: IBUPROFEN TAB 400 MG TABLET 800 MG PO (00:26)
[2025-02-01] MEDS: ONDANSETRON INJ 2 MG/ML INJ 2 ML 4 MG IVP (01:21)
--- NOTE | 2025-02-01 02:42 | PC.NURSE ---
0238:Pt. transferred to room 467 via ambulation with in open crib, accompanied by battery recharger, spouse and pt. belongings. Pt. oriented to room, call light within reach.
[2025-02-01] MEDS: OXYTOCIN in NS 20 units 20 UNIT/1,000 ML BAG 125 UNIT IV (05:27)
[2025-02-01] MEDS: DOCUSATE SOD 100 MG CAPSULE PO ×2 (08:05→20:42)
[2025-02-01 09:31] LABS: Basophils # (Auto) 0.1 Thou/mm3 (0.0-0.2); Basophils % (Auto) 0 % (0-2.5); Eosinophils # (Auto) 0.0 Thou/mm3 (0.0-0.5); Eosinophils % (Auto) 0 % (0-10); Hematocrit 32.2 % (36.0-46.0); Hemoglobin 10.5 g/dL (12.0-16.0); Immature Granulocytes Auto 0.07 Thou/mm3 (0.00-0.00); Lymphocytes # (Auto) 0.9 Thou/mm3 (1.0-4.8); Lymphocytes % (Auto) 8 % (10-50); Mean Corpuscular HGB Conc 32.6 g/dl (31.0-37.0); Mean Corpuscular Hemoglobin 27.5 pg (25.0-35.0); Mean Corpuscular Volume 84 fL (80-100); Monocytes # (Auto) 0.5 Thou/mm3 (0.0-0.8); Monocytes % (Auto) 4 % (0-12); Neutrophils # (Auto) 10.1 Thou/mm3 (1.8-7.7); Neutrophils % (Auto) 87 % (37-80); Nucleated Red Blood Cell # 0.00 Thou/mm3 (0.00-0.00); Nucleated Red Blood Cell % 0 /100 WBC (0); Platelet Count 167 Thou/mm3 (140-440); RDW Standard Deviation 41.8 fL (36.4-46.3); Red Blood Count 3.82 Miln/mm3 (4.00-5.20); White Blood Count 11.6 Thou/mm3 (3.6-11.0)
[2025-02-01] MEDS: ACETAMINOPHEN 325 MG TABLET 650 MG PO (12:13)
--- NOTE | 2025-02-01 16:37 | PD.LDPPPRG ---
Subjective Subjective Interval history: No complaints of pain. No dizziness. Bonding and breast Exam Vital Signs Temp Pulse Resp BP Pulse Ox O2 Del Method 98.1 F 81 18 104/69 99 Room Air 02/01/25 15:44 02/01/25 15:44 02/01/25 15:44 02/01/25 15:44 02/01/25 15:44 02/01/25 15:44 Narrative Exam Vital signs stable afebrile. Pressure soft. Fundus firm below umbilicus. Perineum intact well-approximated. No signs of infection. Small lochia. Uterus well involuted. Negative Homans' sign. 2+ DTRs Objective Labs 02/01/25 08:35 Labs: Laboratory Results - last 24 hr 02/01/25 08:35 WBC 11.6 H RBC 3.82 L Hgb 10.5 L Hct 32.2 L MCV 84 MCH 27.5 MCHC 32.6 RDW Std Deviation 41.8 Plt Count 167 Neut % (Auto) 87 H Lymph % (Auto) 8 L [place] % (Auto) 4 Eos % (Auto) 0 Baso % (Auto) 0 Neut # (Auto) 10.1 H Lymph # (Auto) 0.9 L [place] # (Auto) 0.5 Eos # (Auto) 0.0 Baso # (Auto) 0.1 Immature Gran # (Auto) 0.07 H Absolute Nucleated RBC 0.00 Immature Gran % 1 H Nucleated RBC % 0 Assessment & Plan Assessment Comment Assessment comment: 24 hr pp Plan Comment Plan Comment: Discharge home tomorrow morning. Continue to use ibuprofen or Tylenol for discomfort. Encourage ambulation and fluids. Observe vital signs. And I will follow-up with patient tomorrow to discharge home Time Spent With Patient Time: Total time spent is greater than 50% in coordination of care (as documented) at patient's floor/unit and/or counseling patient:
[2025-02-02 03:46] VITALS: BP 110/77; PULSE 61; RESP 16; TEMP 36.4; O2SAT 96
[2025-02-02 08:09] VITALS: BP 108/71; PULSE 70; RESP 16; TEMP 36.6; O2SAT 97
[2025-02-02] MEDS: DOCUSATE SOD 100 MG CAPSULE PO (08:31)
[2025-02-02] MEDS: DIPHTH,PERTUSS(ACELL),TET VAC 0.5 ML SYR- ADULT IMi (08:47)
--- NOTE | 2025-02-02 13:48 | PD.LDPPPRG ---
Subjective Subjective Interval history: No complaints of pain. No dizziness. Bonding breast Exam Vital Signs Temp Pulse Resp BP Pulse Ox O2 Del Method 97.9 F 70 16 108/71 97 Room Air 02/02/25 08:09 02/02/25 08:09 02/02/25 08:09 02/02/25 08:09 02/02/25 08:09 02/02/25 08:09 Narrative Exam Signs stable afebrile. Breast with soft. Fundus firm below the umbilicus. Perineum intact no swelling. Lacerations well-approximated. Negative Homans' sign. 2+ DTRs. Small lochia Objective Labs 02/01/25 08:35 Assessment & Plan Assessment Comment Assessment comment: 24-hour Plan Comment Plan Comment: Discharge home with baby. Continue vitamins and iron. Tylenol ibuprofen for pain. Discussed danger signs and symptoms and ER precautions. I discussed signs symptoms of infection. Increase fluids. No sex. Discussed wound care and comfort measures for laceration. return in 3 weeks Time Spent With Patient Time: Total time spent is greater than 50% in coordination of care (as documented) at patient's floor/unit and/or counseling patient:
--- NOTE | 2025-02-02 13:50 | PD.LDDS ---
DS: Providers Provider Date of admission: 01/30/25 09:42 Primary care physician: Physician No Primary/Family Admitting Provider: Stephanie Lopez MD (OB Clinic) Attending Provider on Admission: Ruben Sosa MD Consults: 02/01/25 00:48 Referral Routine Comment: Attending Provider on DC: Flakita Spain CNM Discharging Provider: Flakita Spain CNM DS: Diagnosis Problem List Completed Was Problem List Reviewed/Reconciled?: Yes Summary/Hosp Course Brief History: 39-year-old 5 para 2 for induction of labor. Patient has been followed at both Dr. Barboza's office and then transferred care to [facility] OB clinic. Last. May 01, 2025. This gives a due date of February 05, 2025. Patient is 39 weeks and a day. She has been followed for GDM on metformin. Sugars have been at goal 90% of the time. Patient is compliant with taking metformin. Patient has also been followed with weekly NST BPP. She has had several maternal- medicine ultrasounds that all concur with dates and growth. And the baby has been growing in the 60th percentile. Denies social habits. And denies surgeries. Patient did report that 10 years ago she had an episode of paralysis in her face like a drooping on the right side. There was no follow-up. Patient had 2 pregnancies since. She had an epidural with the last . Reports movement. Occasional contractions. Denies leaking or bleeding. Peripartum Data Delivery Method: Normal Vaginal Delivery Episiotomy Description: None Laceration Description: yes (1 perineal) complications: none Time Spent with Patient Time attestation: Total time spent providing and/or coordinating discharge services: Exam Vital Signs Temp Pulse Resp BP Pulse Ox O2 Del Method 97.9 F 70 16 108/71 97 Room Air 02/02/25 08:09 02/02/25 08:09 02/02/25 08:09 02/02/25 08:09 02/02/25 08:09 02/02/25 08:09 Discharge Plan Plan Patient Disposition: HOME (Self Care) Patient condition on transfer: Stable Prescriptions/Referrals Prescriptions/Med Rec: No Action Classic 28 mg iron- 800 mcg tablet 1 tab PO metformin 500 mg tablet 500 mg PO QDAY Referrals: No Primary/Family,Physician [Primary Care Provider] Patient/Caregiver Discharge Instructions Meds to Beds: No Discharge Activity: resume usual activities Education Materials: After a Vaginal , After Delivery [place] Concerns, Breast Care After , Incision Care After Vaginal Print Language: Iranian Activity Restrictions/Additional Instructions: Discharge home with baby. Continue vitamins and iron. Tylenol ibuprofen for pain. Discussed danger signs symptoms and ER precautions. Discussed comfort measures for first-degree perineal laceration and sitz bath's twice a day. I discussed signs and symptoms of infection. And return in 3 weeks with Stand Alone Forms: Anne Award Info., Patient Portal Info Letter Vaccines Vaccines Given During Stay: TDaP Discharge Order Discharge Orders: Discharge (Routine); Ordered 02/02/25 Ordered By: Flakita Spain Planned Discharge Date 02/02/25
== END 2025-02-02 14:18 | disposition home or self-care (01) | DRG 560 ==
LOC: S4SX 01-31 23:37 → S4NX 02-01 02:39
PROVIDERS: Advanced Practice Midwife; Admitting Provider Obstetrics & Gynecology; Visit Provider Obstetrics & Gynecology
DX: O24.425 Gestational diabetes mellitus in childbirth, controlled by oral hypoglycemic drugs (principal); Z37.0 Single live birth; Z3A.39 39 weeks gestation of pregnancy; O70.0 First degree perineal laceration during delivery; O69.81X0 Labor and delivery complicated by cord around neck, without compression, not applicable or unspecified; Z23 Encounter for immunization
CPT/HCPCS: 36415; 76805; 85025; 86780; 86850; 86900; 86901; 90715; J2210; J2405; J2590; J2795; J3010; J3490; J7120; S0191; A9270

== ENCOUNTER 2025-02-28 13:01 | Outpatient (AMB) | payer MEDICAID, SELFPAY ==
--- NOTE | 2025-02-28 13:17 | AMB.OBPP ---
Vital Signs 02/28/25 13:18 Height 1.6 m Height Method Stated Weight 78.528 kg Weight Measurement Method Standing Scale BMI 30.7 BP 123/83 Blood Pressure Source Automatic Cuff Blood Pressure Location Right Upper Arm Position Sitting Respiration 18 Pulse 67 Pulse Source Monitor Temp 97.7 F Temp Source Temporal Artery Scan Pulse Oximetry (%) 96 Oxygen Delivery Method Room Air Allergies/Home Meds Allergies & Medications Allergies No Known Allergies Allergy (Verified 02/28/25 13:18) Medication Reconciliation metformin 500 mg tablet 500 mg PO QDAY 12/12/24 [History Confirmed 02/28/25] vits no.126-ferrous fum 28 mg iron-folic acid 800 mcg tablet (Classic ) 1 tab PO 12/12/24 [History Confirmed 02/28/25] Intake Visit Data Collection New Patient or Established: Established Patient (seen at [facility] within 3 years) Reason for Visit:: Seen by Clinical Staff ONLY (RN/MA): No Assistant Director Of Financial Aid Required: No Do You Feel Safe at Home: Yes Authorities Contacted: N/A PCP or OBGYN visit in last 3 months: Yes Date of Last PCP or OBGYN visit: 02/02/25 Hx Now: No Are you currently on any form of Control: No Pain Present Currently: No Pain Scale Used: Jarquin-Russell/Numerical Pain scale:: 0 Smoking Status Smoking Status: Never smoker Immunizations Flu Vaccine in the Last 12 Months: Yes Flu Vaccine Exclusion Criteria: Already Received ACCOUNT DEVELOPMENT REPRESENTATIVE: Past Medical History Past Medical History: No Hx Neurological Disorders, No Hx Hypothyroidism, No Hx Breast Cancer, No Hx Cardiac Disorders, No Hx Cancer, No Hx Blood Disorders, No Hx Anemia, No Hx Gastrointestinal Disorders, No Hx Renal Disease, No Hx Diabetes Mellitus Type 1 and No Hx Diabetes Mellitus Type 2 Questionnaires Covid-19 Vaccine Questionnaire Has patient been vacinated for Covid-19 Have you been vacinated for Covid-19: No Social History Living Situation History Marital Status: Lives With: Family Housing: House Housing Other:: Lives w/ and children Tobacco History Smoking Status: Never smoker Second Hand Smoke Exposure: No Alcohol History Alcohol Intake: Never Domestic Abuse History Do You Feel Safe at Home: Yes EPDS - PP Depression Screening [place] Pospartum Depression Screen I have been able to laugh and see the funny side of things: (0) As much as I always could I have looked forward with enjoyment to things: (0) As much as I ever did I have blamed myself unnecessarily when things went wrong: (0) No, never I have been anxious or worried for no good reason: (0) No, not at all I have felt scared or panicky for no very good reason: (0) No, not at all Things have been getting on top of me: (0) No, I have been coping as well as ever I have been so unhappy that I have had difficulty sleeping: (0) No, not at all I have felt sad or miserable: (0) No, not at all I have been so unhappy that I have been crying: (0) No, never The thought of harming myself has occurred to me: (0) Never EPDS completed yes Care OB Visit Log OB Flowsheet Initial Weight: Not Recorded Date <del>?</del> EGA Weight BP Alb Glu CTX Pres Fundal ht FHR Mov Dilation Station Effacement Hx Notes Visit Note 12/12/24 <del>?</del> 32w 1d 82.157 kg 106/70 absent unknown 32 145 active 39-year-old 5 para 3 for OBI. Patient is a transfer from Dr. Barboza with records. History of GDM with this . She is taking metformin 500 twice daily her 3-hour 1 and 2-hour values were elevated. She is tracking her sugars and being compliant with diet. Walks 20 to 40 minutes a day. Sugars are at goal 90% of the time. Reports good movement. Denies leaking, denies bleeding, denies contractions. Patient has a follow-up with MFM in 3 weeks. Reviewed records and labs with patient. I reviewed sugar logs. Continue GDM diet. Patient to continue metformin 500 twice daily. Walk 40 minutes a day. Keep MFM ultrasound in 2 weeks. I scheduled NST BPP for patient discussed labor precautions and kick counts twice a day. Increase fluids. And return in 2 weeks OB check 12/26/24 <del>?</del> 34w 1d 82.781 kg 114/67 absent cephalic 34 145 active Reports good movement. Sugars are at goal 90% of the time. Patient is compliant with GDM diet. Patient is also compliant with weekly NST BPP she has a follow-up appointment with MFM in 3 weeks Continue to follow GDM diet and monitor glucose every day. 4 times a day. Keep appointments for weekly NST BPP and with MFM. Discussed labor precautions and labor precautions with patient. Discussed kick count twice a day. And return in 2 weeks for GBS and OB check 01/09/25 <del>?</del> 36w 1d 84.368 kg 118/76 occasional cephalic 36 135 active Reports good movement. Denies leaking, denies bleeding, occasional contraction. Increased pressure. Sugars are at goal 95% of the time. Continue weekly NST BPP. Kick count twice a day reviewed with patient. Continue GDM diet and to log sugars. Walk 40 minutes a day. GBS today. Schedule induction for 01/30/25 01/19/25 <del>?</del> 37w 4d 84.141 kg 120/78 occasional cephalic 37 135 active Fetus is active per patient. Denies leaking, denies bleeding, denies contractions. Sugars at goal 90% of the time. Patient is aware of GDM diet. Compliant with monitoring sugars. Patient has weekly NST BPP and is compliant with Continue weekly nonstress test and BPP. Continue GDM diet and monitoring glucoses 4 times a day. Kick count twice a day. Reviewed labor precautions with patient and patient will be induced January 30 01/26/25 <del>?</del> 38w 4d 86.636 kg 126/80 occasional cephalic 38 135 active Patient relayed during visit that over 10 years ago patient had had an episode of paralysis on her right side that resolved. She did not have any follow-up with neurology. She never relayed any information to any of her primary primary care doctors. She did not relay any information to Dr. Barboza or [facility] but she is telling me today. Patient was told to avoid a spinal anesthesia. However she had a epidural with her last and she said it helped her a lot and that she did not have any residual effects so she would like epidural again. Denies any contractions. Denies leaking or bleeding. Reports good movement. Patient reports compliance with GDM diet and logging her sugars. She also reports that she is compliant with weekly NST BPP and she is scheduled for induction on January 30 Continue weekly NST BPP. Patient scheduled for induction January 30. I discussed induction with patient. Discussed epidural anesthesia with patient continue kick count twice a day. Discussed sugar logs. Patient is at goal 95% of the time. She is to continue with GDM diet and monitoring sugars. Return in a week for OB check if patient's not in for induction MARVIN Calculator Estimated Delivery Date Method Current WG Current Estimate 02/05/25 Ultrasound #1 43w 2d Other Estimates 03/19/25 LMP (Uncertain) 37w 2d 02/05/25 Ultrasound #2 43w 2d 02/05/25 Manual 43w 2d final MARVIN: 02/05/25 Notes Visit Date: 01/19/25 Last Updated by: Flakita Spain CNM GBS- GDM/diet Visit Date: 01/09/25 Last Updated by: Flakita Spain CNM IOL: 01/30/25 Visit Date: 12/12/24 Last Updated by: Flakita Spain CNM [address] ob sono: 08/15/24. IUP:15 week: 02/05/25. VCH sono: 25w1: 02/05/25, efw; 375. A+, RPR nonreactive, HIV negative, hepatitis C negative, hep B negative, rubella immune, GC and Chlamydia were negative. AFP, NIPT and carrier screens all negative. 1 hour GTT was 142. 3-hour GTT was abnormal. A1c 5.7. HPI Interval History: 39-year-old 4 para 4 for 4-week . Patient had a vaginal January 31, 2025. She had a baby girl, 7 pounds 8 ounces. She was induced because of AMA and GDM. Siblings are adjusting. Father of the baby is helpful involved. Patient has not had sex yet. She would like to use Depo she has used it in the past with no problems. And no interval complaints Was or delivery considered high risk: Yes Delivery type: vaginal (GDM/AMA, small vag laceration) Was labor induced: yes Gestational age at delivery (weeks): 39 Delivery date: 01/31/25 Delivering provider: travis Delivery complications: No Is patient infant: Yes Is patient sexually active: No Contraception planned: depo Review of Systems Review of Systems ROS limited to current ACCOUNT DEVELOPMENT REPRESENTATIVE complaints: Yes Exam Narrative Physical exam: Normal heart rate and rhythm. Lungs clear no wheezes. Abdomen is soft nontender. Uterus well involuted. Perineum is intact no lacerations. No swelling. Small lochia. Negative Homans' sign. 2+ DTRs. No edema no swelling. Breasts are soft General Limitations: no limitations General Appearance: alert, in no apparent distress, comfortable, cooperative, healthy appearing, well developed and well groomed Head Head exam: atraumatic, normocephalic and normal inspection Chest Chest inspection: Present normal inspection and symmetric chest wall rise Resp Respiratory exam: Present normal lung sounds bilaterally Card Cardiovascular exam: Present regular rate, normal rhythm and normal heart sounds Abdominal Abdominal exam: Present soft and normal bowel sounds Psych Psychiatric exam: Present normal affect and normal mood Results Objective Laboratory: neg preg test Office Procedures OBC Clinic LOC & Office Proc's Nursing/Assessment Patient Status: Established Patient OB Clinic Nursing Assessment: Medication Reconciliation, Update PMH in EMR and Vital Signs OB Clinic Coordination of Care: Complex Care and Chronic Disease 1-5, Education Complex Pt/Fam, Consent,records obtained, informed consent, Results/Orders obtained and Staff clarify orders Miscellaneous Interventions: Blood/Urine Collection Established Patient Charge Established Patient Point Assignment: 125 Established Patient Point Charge: EP Level 4 (120-155) Antepartum Initial or Follow-up Antepartum Initial Visit: Yes Injection/Vaccine Admin SQ Im Injection: Yes In Clinic Bedside tests/procedures Bedside HCG: Yes Office Meds Depo-Provera 150 mg/mL intramuscular syringe Performing Provider: Flakita Spain CNM Performing Location: [facility] Administered by: Christina River MA on 02/28/25 14:08 Dose Route Admin Location Dispensed Lot Number Expiration Date Package ND NDC Loom Overhauler 150 mg IM LEFT GLUTE 1 mL [id number] 01/02/26 1479-9939-96 [id number] [facility] Results Urine HCG Urine HCG Negative Last Edit by Christina River MA on 02/28/25 14:17 Assessment & Plan Diagnosis / Problem List (1) 6 weeks follow-up: Status: Acute (2) Encounter for management and injection of depo-Provera: Status: Acute Plan Depo-Provera 150 mg IM x 1. Reviewed method and side effects. Patient to walk 40 minutes a day. Vitamin D and calcium daily. Continue prenatals. Discussed latching and breast-feeding positions. Increase fluids. We ordered a 2-hour GTT and return in 12 weeks for Depo Care Reviewed delivery summary and any complications: Yes Uterus involuted to: 3 below umb Perineal / incision healing noted: Yes Screened for depression: Yes Depression counseling provided: No Discussed family planning & contraception: Yes Contraception planned: depo Counseling on safe resumption of sexual activity: Yes Counseling on gradual excercise: Yes Discussed and concerns (describe), provided support: Yes Referred to data integrity specialist: No Counseled on good nutrition, hydration, and self care: Yes Reviewed vaccine status: Yes care discussed; questions answered: feeding Follow up: routine/prn Additional counseling & anticipatory guidance provided: depo 150 im, review mehtod and side effect. rtc 12 week
[2025-02-28 13:18] VITALS: BP 123/83; PULSE 67; RESP 18; TEMP 36.5; O2SAT 96; BMI 30.7
== END 2025-02-28 14:07 | disposition home or self-care (01) ==
LOC: HODSOBC 13:01
PROVIDERS: Supervising Provider Advanced Practice Midwife; Visit Provider Advanced Practice Midwife
DX: Z39.2 Encounter for routine postpartum follow-up (principal); Z39.1 Encounter for care and examination of lactating mother; Z30.013 Encounter for initial prescription of injectable contraceptive; Z32.02 Encounter for pregnancy test, result negative
CPT/HCPCS: 59425; 81025; 96372; 99213; 99214; J3490; G0463